=== PATIENT | male | born 1970 | race Caucasian/White ===

== ENCOUNTER 2016-09-23 05:17 | Emergency (ER) | payer BC, OTHER ==
--- NOTE | 2016-09-23 05:28 | EDM.PDOC ---
ED HPI GENERAL MEDICAL PROBLEM - General Chief Complaint: Back Pain or Injury Stated Complaint: BACK PAIN Time Seen by Provider: 09/23/16 05:28 Source of Information: Reports: Patient - History of Present Illness INITIAL COMMENTS - FREE TEXT/NARRATIVE: HISTORY AND PHYSICAL: History of present illness: []Patient has a history of low back pain and previous surgery 10 years prior on L4-L5 per patient, yesterday he was lifting some boxes "cases "and developed 10 out of 10 back pain no radiation. Prior injury was Workmen's Compensation covered/related. 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 Denies footdrop or saddle anesthesia no bowel or urine symptoms no radiation down either leg No fever nausea vomiting chills sweats no chest pain shortness breath headache dizziness or palpitation no bowel or urine symptoms Review of systems: As per history of present illness and below otherwise all systems reviewed and negative. Past medical history: As per history of present illness and as reviewed below otherwise noncontributory. Surgical history: As per history of present illness and as reviewed below otherwise noncontributory. Social history: No reported history of drug or alcohol abuse. Family history: As per history of present illness and as reviewed below otherwise noncontributory. Physical exam: HEENT: Atraumatic, normocephalic, pupils reactive, negative for conjunctival pallor or scleral icterus, mucous membranes moist, throat clear, neck supple, nontender, trachea midline. Lungs: Clear to auscultation, breath sounds equal bilaterally, chest nontender. Heart: S1S2, regular, negative for clicks, rubs, or JVD. Abdomen: Soft, nondistended, nontender. Negative for masses or hepatosplenomegaly. Negative for costovertebral tenderness. Pelvis: Stable nontender. Genitourinary: Deferred. Rectal: Deferred. Extremities: Atraumatic, negative for cords or calf pain. Neurovascular unremarkable. Able straight leg raise past 30 without radiculopathy Neuro: Awake, alert, oriented. Cranial nerves II through XII unremarkable. Cerebellum unremarkable. Motor and sensory unremarkable throughout. Exam nonfocal. No footdrop or saddle anesthesia Diagnostics: []Lumbar spine Therapeutics: []Toradol 60 IM Toradol 10 mg by mouth 3 times a day when necessary #30 no refill Flexeril 48 hours off work Follow-up with primary care one week, patient just moved to [place] over the last months is not have primary care and so provide referral, but his workplace may have occupational health coverage Impression: []Low back pain Definitive disposition and diagnosis as appropriate pending reevaluation and review of above. Lower Back Pain Score (Numeric/FACES): 10 - Related Data Allergies Allergy/AdvReac Type Severity Reaction Status Date / Time No Known Allergies Allergy Verified 09/23/16 05:36 Home Meds: Home Meds . [Unable to Verify Home Med List] 09/23/16 [History] ED ROS GENERAL - Review of Systems Review Of Systems: ROS reveals no pertinent complaints other than HPI. ED EXAM, GENERAL - Physical Exam Exam: See Below Course - Vital Signs Last Recorded V/S: Last Vital Signs Temp 35.9 C 09/23/16 05:31 Pulse 64 09/23/16 05:31 Resp 20 09/23/16 05:31 BP 151/75 H 09/23/16 05:31 Pulse Ox 98 09/23/16 05:31 - Orders/Labs/Meds Orders: Active Orders 24 hr Category Date Time Status Lumbar Spine 2 or 3V [CR] Stat Exams 09/23/16 05:46 Taken Meds: Medications Discontinued Medications Generic Name Dose Route Start Last Admin Trade Name Freq PRN Reason Stop Dose Admin Ketorolac Tromethamine 60 mg 09/23/16 05:46 09/23/16 06:00 Toradol IM 09/23/16 05:47 60 mg ONETIME ONE Administration Departure - Departure Time of Disposition: 06:38 Disposition: Home, Self-Care 01 Condition: Fair Clinical Impression: Low back pain - Discharge Information Forms: ED Department Discharge Additional Instructions: 20 pound weight limit Medication as prescribed Return if symptoms persist worsen or new concerning symptoms develop Follow-up with primary care in one week, ER referral provided May consider MRI with primary care at that time Note for 48 hours off work provided Ice 20 minute intervals 3 times daily 7-10 days [facility] [address] [place] [id number] The following information is given to patients seen in the emergency department who are being discharged to home. This information is to outline your options for follow-up care. We provide all patients seen in our emergency department with a follow-up referral. The need for follow-up, as well as the timing and circumstances, are variable depending upon the specifics of your emergency department visit. If you don't have a primary care physician on staff, we will provide you with a referral. We always advise you to contact your personal physician following an emergency department visit to inform them of the circumstance of the visit and for follow-up with them and/or the need for any referrals to a consulting specialist. The emergency department will also refer you to a specialist when appropriate. This referral assures that you have the opportunity for follow-up care with a specialist. All of these measure are taken in an effort to provide you with optimal care, which includes your follow-up. Under all circumstances we always encourage you to contact your private physician who remains a resource for coordinating your care. When calling for follow-up care, please make the office aware that this follow-up is from your recent emergency room visit. If for any reason you are refused follow-up, please contact the [facility] emergency department at and asked to speak to the emergency department charge nurse. - My Orders Last 24 Hours: My Active Orders 09/23/16 05:46 Lumbar Spine 2 or 3V [CR] Stat - Assessment/Plan Last 24 Hours: My Active Orders 09/23/16 05:46 Lumbar Spine 2 or 3V [CR] Stat
[2016-09-23] MEDS ORDERED: Ketorolac 60 MG/2 ML SDV IM ONE (05:46)
[2016-09-23 07:06] VITALS: BP 165/93
--- NOTE | 2016-09-23 15:58 | CR ---
EXAM DATE: 09/23/16 PATIENT'S AGE: 46 Patient: IRENE LEMOS Facility: [place] [place] Site . Site : [id number] Study: XRay Spine Lumbar [id number]/[id number] 6:21:20 AM Ordering Physician: Doctor Colon Final Report: Indication: Back pain. Technique: Three views. Findings: Five lumbar type [id number] vertebral. Anatomic alignment without fracture. Mild degenerative disc disease lower lumbar spine most pronounced L4- 5. Shallow Schmorl`s nodes and cavities in the endplates above this within the lumbar spine. Small anterior osteophytes at this level. Right lower quadrant surgical clips. Sacroiliac joints appear normal. Dictated by Deven Dial MD @ Sep 23 2016 6:29AM (Electronic Signature) Report Signed by Proxy. [email or web address]
== END 2016-09-23 06:53 | disposition home or self-care (01) ==
LOC: MW.ED 05:17
DX: M54.5 Low back pain (principal); Z98.890 Other specified postprocedural states
CPT/HCPCS: 72100; 96372; 99283; J1885; 99282